=== PATIENT | male | born 2000 | race Caucasian/White ===

== ENCOUNTER 2020-04-17 10:38 | Emergency (ER) | payer BC, OTHER ==
[~2020-04-17] VITALS: Ht 177.8 cm; Wt 68.1 kg
[2020-04-17 10:55] VITALS: BP 128/57
[2020-04-17] MEDS ORDERED: LIDOCAINE 1% Multi-Dose 20 ML VIAL. INJ ONE (11:15)
[2020-04-17] MEDS ORDERED: AMOX1TAB10 PO (11:44)
--- NOTE | 2020-04-17 11:44 | PHYS DOC ---
Past Medical History Past Medical History: Other Additional Past Medical Histor: SLEEP Past Surgical History: Tonsillectomy, Other Additional Past Surgical Histo: ADENOIDS,ORIF FEMUR/REMOVAL HARDWARE Smoking Status: Never Smoker Alcohol Use: None General Adult EDM: Chief Complaint: ANIMAL BITE HPI: HPI: Patient is a 19 year old male who presents with was roughhousing with his mother's Jus Canela when it bit him in the upper corner of his lip causing a 0.5 cm laceration that is not through and through. His tetanus is up-to-date. Patient denies any pain at this time. Scant bleeding. Patient has a history of tonsillectomy and adenoids, femur removal and hardware. Denies any pain. The family dog vaccinations is up-to-date and rabies is up-to-date. Review of Systems: Review of Systems: Constitutional: Denies fever or chills. [] Eyes: Denies change in visual acuity. [] HENT: Denies nasal congestion or sore throat. [] Respiratory: Denies cough or shortness of breath. [] Cardiovascular: Denies chest pain or edema. [] GI: Denies abdominal pain, nausea, vomiting, bloody stools or diarrhea. [] : Denies dysuria. [] Musculoskeletal: Denies back pain or joint pain. [] Integument: Denies rash. +Lip laceration [] Neurologic: Denies headache, focal weakness or sensory changes. [] Endocrine: Denies polyuria or polydipsia. [] Lymphatic: Denies swollen glands. [] Psychiatric: Denies depression or anxiety. [] Heart Score: Risk Factors: Risk Factors: DM, Current or recent (<one month) smoker, HTN, HLP, family history of CAD, obesity. Risk Scores: Score 0 - 3: 2.5% MACE over next 6 weeks - Discharge Home Score 4 - 6: 20.3% MACE over next 6 weeks - Admit for Clinical Observation Score 7 - 10: 72.7% MACE over next 6 weeks - Early Invasive Strategies Current Medications: Current Medications Medications (Trade) Dose Ordered Sig/Karla Start Time Stop Time Status Last Admin Dose Admin Lidocaine HCl (Lidocaine 1% 20ml Vial) 20 ml 1X ONCE 04/17/20 11:15 04/17/20 11:16 DC 04/17/20 11:26 20 ML Allergies: Allergies: Allergies Coded Allergies Type Severity Reaction Last Updated Verified diazepam Allergy Intermediate RASH 04/17/20 Yes Physical Exam: PE: Constitutional: Well developed, well nourished, no acute distress, non-toxic appearance. [] HENT: Normocephalic, atraumatic, bilateral external ears normal, oropharynx moist, no oral exudates, nose normal. [] Eyes: PERRLA, EOMI, conjunctiva normal, no discharge. [] Neck: Normal range of motion, no tenderness, supple, no stridor. [] Cardiovascular:Heart rate regular rhythm, no murmur [] Lungs & Thorax: Bilateral breath sounds clear to auscultation [] Abdomen: Bowel sounds normal, soft, no tenderness, no masses, no pulsatile masses. [] Skin: Warm, dry, no erythema, no rash. Upper corner lip laceration [] Back: No tenderness, no CVA tenderness. [] Extremities: No tenderness, no cyanosis, no clubbing, ROM intact, no edema. [] Neurologic: Alert and oriented X 3, normal motor function, normal sensory function, no focal deficits noted. [] Psychologic: Affect normal, judgement normal, mood normal. [] Current Patient Data: Vital Signs: Vital Signs Date Time Temp Pulse Resp B/P (MAP) Pulse Ox O2 Delivery O2 Flow Rate FiO2 04/17/20 10:55 98.1 63 15 128/57 (80) 96 Room Air 98.1 EKG: EKG: [] Radiology/Procedures: Radiology/Procedures: [] Course & Med Decision Making: Course & Med Decision Making Pertinent Labs and Imaging studies reviewed. (See chart for details) See HPI. Patient is placed on Augmentin antibiotic. Laceration repair Location: 0.5 cm upper corner of lip Local anesthesia: 1% lidocaine Interrupted sutures/Internal sutures: 2 sutures using 6-0 starting at vermilion border Nerve/ligament/muscle damage: None Cleaning and irrigation: Chlorhexidine and saline The appropriate timeout was taken. The area was prepped and draped in the usual sterile fashion. The wound was copiously irrigated with normal saline and chlorhexidine. Patient tolerated well without complication. Dressing was applied to the area follow-up education is given to observe for signs and symptoms of infection, bleeding and to follow-up promptly if these occur. Patient can return in 48 hours for a wound recheck. Sutures to be removed in 7 to 10 days. [] Anamaria Disclaimer: Dragon Disclaimer: This electronic medical record was generated, in whole or in part, using a voice recognition dictation system. Departure Departure Impression: Primary Impression: Animal bite Additional Impression: Laceration Disposition: 01 DC HOME SELF CARE/HOMELESS Condition: STABLE Referrals: JERMAIN SALINAS MD (PCP) Patient Instructions: Animal Bite, Facial Laceration, Gkoi-oz-Zowd Additional Instructions: Keep the area clean. Sutures need to be removed in 10 days. Take antibiotic as prescribed and with food. Watch for signs of infection. Take ibuprofen for any pain. Scripts Amoxicillin/Potassium Clav (AMOX TR-K CLV 500-125 MG TAB) 1 Each Tablet 1 TAB PO BID for 10 Days, #20 TAB Prov: JOSELITO OLSEN APRN 04/17/20 JOSELITO OLSEN APRN Apr 17, 2020 11:44
== END 2020-04-17 11:55 | disposition home or self-care (01) ==
LOC: ER 10:38
DX: S01.511A Laceration without foreign body of lip, initial encounter (principal); Z88.8 Allergy status to other drugs, medicaments and biological substances; W54.0XXA Bitten by dog, initial encounter; Y93.89 Activity, other specified; Y92.89 Other specified places as the place of occurrence of the external cause; Y99.8 Other external cause status
CPT/HCPCS: 12011; 99283; J3490

== ENCOUNTER 2020-08-07 06:29 | Emergency (ER) | payer OTHER ==
[~2020-08-07] VITALS: Ht 177.8 cm; Wt 70.5 kg
[~2020-08-07 06:29] MED LIST: AMOX1TAB10 PO
[2020-08-07] MEDS ORDERED: MECLIZINE HCL 12.5 MG TABLET. PO ONE (07:00)
[2020-08-07] MEDS ORDERED: IV NORMAL SALINE 1000ML BAG 1,000 ML IV ONE (07:00)
--- NOTE | 2020-08-07 07:01 | EKG ---
[facility] [address] [place] [address] Test Date: 2020-08-07 Test Time: 06:45:41 Pat Name: YE SEPULVEDA Department: Room: Gender: M Rn Care Transition: : 2000 Requested By: MADALYN DELGADO Order Number: [id number] Reading MD: Measurements Intervals [place] Rate: 63 P: 56 MO: 196 QRS: 38 QRSD: 84 T: 52 QT: 360 QTc: 371 Interpretive Statements SINUS RHYTHM OTHERWISE NORMAL ECG RI6.02 No previous ECG available for comparison
--- NOTE | 2020-08-07 07:07 | PHYS DOC ---
Past Medical History Past Medical History: Other Additional Past Medical Histor: SLEEP Past Surgical History: Tonsillectomy, Other Additional Past Surgical Histo: ADENOIDS,ORIF FEMUR/REMOVAL HARDWARE Smoking Status: Never Smoker Alcohol Use: None General Adult EDM: Chief Complaint: DIZZY/LIGHT HEADED HPI: HPI: This is a pleasant 20-year-old male presenting to the emergency department today with dizziness. He describes his dizziness as the room is spinning. It is worse when he lays on his side and improved when he sits still. Its worse with change in orientation. He denies any pain associated with it. He denies a headache vomiting. He does have nausea associated with his symptoms. He denies any fevers or chills. Review of systems negative for chest pain abdominal pain rash fever chill nuchal rigidity. He denies any focal neurologic deficit. All other review of systems negative. ED course: 20-year-old male presenting the emergency department today with dizziness. EKG blood work and head CT ordered. Patient was given IV fluids with meclizine and Zofran and feels better after these medications. EKG unremarkable. EKG shows sinus rhythm with a regular rate. ST segments congruent. Not suggestive of acute ischemia. Head CT unremarkable. Chemistry panel unremarkable. CBC shows mild leukopenia. We will have the patient follow-up with his doctor over the next 2 to 4 days for repeat CBC. Otherwise we will refer the patient for outpatient peripheral vertigo evaluation and treatment. If the patient's vertigo persists over the next 2 to 3 weeks he will need an MRI of the brain. The patient has been examined and was not found to have an emergency medical condition. The patient was then discharged home in stable condition to follow up with their primary care physician over the next 2- 3 days. They were to return if their symptoms worsened or if they were concerned for any reason. They were also instructed to return to the emergency department if they were unable to get the recommended and appropriate follow-up. Kyli-[id number]-[id number] discharge instructions and return precautions were given. Patient's questions were answered to their satisfaction. Patient is comfortable with plan. Heart Score: C/O Chest Pain: No Risk Factors: Risk Factors: DM, Current or recent (<one month) smoker, HTN, HLP, family history of CAD, obesity. Risk Scores: Score 0 - 3: 2.5% MACE over next 6 weeks - Discharge Home Score 4 - 6: 20.3% MACE over next 6 weeks - Admit for Clinical Observation Score 7 - 10: 72.7% MACE over next 6 weeks - Early Invasive Strategies Current Medications: Current Medications Medications (Trade) Dose Ordered Sig/Karla Start Time Stop Time Status Last Admin Dose Admin Meclizine HCl (Antivert) 25 mg 1X ONCE 08/07/20 07:00 08/07/20 07:01 UNV Sodium Chloride 1,000 ml @ 1,000 mls/hr 1X ONCE 08/07/20 07:00 08/07/20 07:59 UNV Allergies: Allergies: Allergies Coded Allergies Type Severity Reaction Last Updated Verified diazepam Allergy Intermediate RASH 04/17/20 Yes Physical Exam: PE: Constitutional: Well developed, well nourished, no acute distress, non-toxic appearance. [] HENT: Normocephalic, atraumatic, bilateral external ears normal, oropharynx moist, no oral exudates, nose normal. [] Eyes: PERRLA, EOMI, conjunctiva normal, no discharge. [] Neck: Normal range of motion, no tenderness, supple, no stridor. [] Cardiovascular:Heart rate regular rhythm, no murmur [] Lungs & Thorax: Bilateral breath sounds clear to auscultation [] Abdomen: Bowel sounds normal, soft, no tenderness, no masses, no pulsatile masses. [] Skin: Warm, dry, no erythema, no rash. [] Back: No tenderness, no CVA tenderness. [] Extremities: No tenderness, no cyanosis, no clubbing, ROM intact, no edema. [] Neurologic: Mental status: Awake oriented and alert x3 Cranial nerves: Extraocular movements intact, eyebrows chema bilaterally, smile symmetric, uvula elevation nl, shoulder shrug intact bilaterally, tongue protrusion normal Clear speech. Normal [id number]. nl heal to santana. Sensation: equal and normal in all extremities Strength: 5/5 in upper and lower extremities bilaterally Psychologic: Affect normal, judgement normal, mood normal. [] EKG: EKG: [] Radiology/Procedures: Radiology/Procedures: [] Course & Med Decision Making: Course & Med Decision Making Pertinent Labs and Imaging studies reviewed. (See chart for details) [] Dragon Disclaimer: Dragon Disclaimer: This electronic medical record was generated, in whole or in part, using a voice recognition dictation system. Departure Departure Impression: Primary Impression: Vertigo Disposition: 01 DC HOME SELF CARE/HOMELESS Condition: STABLE Referrals: HOUSTON HAMMER MD (PCP) Patient Instructions: Vertigo Additional Instructions: EMERGENCY DEPARTMENT GENERAL DISCHARGE INSTRUCTIONS Follow-up with your primary physician in 2-3 days. You will likely benefit from outpatient peripheral vertigo physical therapy. If your symptoms persist over the next 2 to 3 weeks you may need an MRI of the brain. Return to the emergency department if you have any new or concerning findings. Thank you for coming to [facility] Emergency Department (ED) today and trusting us with you care. We trust that you had a positive experience in our Emergency Department. If you wish to speak to the department management, you may call the Director at [phone]. YOUR FOLLOW UP INSTRUCTIONS ARE FOLLOWS: 1. Do you have a private Doctor? If you do not have a private doctor, please ask for a resource list of physicians or clinics that may be able to assist you with follow up care. 2. If a lab test or culture has been done and does not come back immediately, your results will be reviewed and you will be notified if you need a change in treatment. ADDITIONAL INSTRUCTIONS AND INFORMATION: 1. Your care today has been supervised by a physician who is specially trained in emergency care. Many problems require more than one evaluation for a complete diagnosis and treatment. We recommend that you schedule your follow up appointment as recommended to ensure complete treatment of you illness or injury. If you are unable to obtain follow up care and continue to have a problem, or if your condition worsens, we recommend that you return to the ED. 2. We are not able to safely determine your condition over the phone nor are we able to give sound medical advice over the phone. For these safety reasons, if you call for medical advice we will ask you to come to the ED for further evaluation. 3. If you have any questions regarding these discharge instructions please call the ED at [phone]. SAFETY INFORMATION: In the interest of safety, wellness, and injury prevention; we encourage you to wear your sealbelt, if you smoke; quite smoking, and we encourage family to use a protective helmet for bicycling and other sporting events that present an increased risk for head injury. IF YOUR SYMPTOMS WORSEN OR NEW SYMPTOMS DEVELOP, OR YOU HAVE CONCERNS ABOUT YOUR CONDITION; OR IF YOUR CONDITION WORSENS WHILE YOU ARE WAITING FOR YOUR FOLLOW UP APPOINTMENT; EITHER CONTACT YOUR PRIMARY CARE DOCTOR, THE PHYSICIAN WHOSE NAME AND NUMBER YOU WERE GIVEN, OR RETURN TO THE ED IMMEDIATELY. This condition should be evaluated by your primary care physician and any necessary consulting services for continued management within a few days (1-2) after discharge. Return to the emergency department if you have any new or concerning symptoms including but not limited to fever, chills, nausea, vomiting, intractable pain, any new rashes, chest pain, shortness of breath, uncontrolled bleeding, difficulty breathing, and/or vision loss. Scripts Meclizine Hcl (MECLIZINE HCL) 25 Mg Tablet 1 TAB PO PRN TID PRN for SEE COMMENTS, #20 TAB Prov: MADALYN DELGADO MD 08/07/20 MADALYN DELGADO MD Aug 07, 2020 07:07
[2020-08-07] MEDS ORDERED: ONDANSETRON PF 4 MG/2 ML VIAL. IVP ONE (07:30)
[2020-08-07 07:35] LABS: BASO % 1 % (0-3); EOS # 0.1 x10^3/uL (0.0-0.7); EOS % 3 % (0-3); HEMATOCRIT 44.5 % (39.0-53.0); HEMOGLOBIN 15.5 g/dL (13.0-17.5); LYMPH # 1.8 x10^3/uL (1.0-4.8); LYMPH % 46 % (24-48); MEAN CORPUSCULAR HEMOGLOBIN 32 pg (25-35); MEAN CORPUSCULAR HGB CONC 35 g/dL (31-37); MEAN CORPUSCULAR VOLUME 92 fL (79-100); MONO # 0.3 x10^3/uL (0.0-1.1); MONO % 8 % (0-9); NEUT # 1.6 x10^3/uL (1.8-7.7); NEUT % 42 % (31-73); PLATELET COUNT 191 x10^3/uL (140-400); RED BLOOD COUNT 4.86 x10^6/uL (4.30-5.70); RED CELL DISTRIBUTION WIDTH 12.6 % (11.5-14.5); WHITE BLOOD COUNT 3.8 x10^3/uL (4.0-11.0)
[2020-08-07 07:55] LABS: CALCIUM 8.9 mg/dL (8.5-10.1); CREATININE 1.2 mg/dL (0.7-1.3); GFR 75.7; POTASSIUM 4.3 mmol/L (3.5-5.1)
[2020-08-07 08:01] LABS: ALBUMIN 3.7 g/dL (3.4-5.0); ALBUMIN/GLOBULIN RATIO 1.4 (1.0-1.7); C-REACTIVE PROTEIN 0.7 mg/L (0-3.3); TOTAL BILIRUBIN 0.3 mg/dL (0.2-1.0); TOTAL PROTEIN 6.4 g/dL (6.4-8.2)
[2020-08-07 08:30] VITALS: BP 116/67
--- NOTE | 2020-08-07 08:30 | RAD ---
RS Compliance Statement: One or more of the following individualized dose reduction techniques were utilized for this examinat ion: 1. Automated exposure control 2. Adjustment of the mA and/or kV according to patient size 3. Use of iterative reconstruction technique CT HEAD WITHOUT CONTRAST History: Reason: dizziness / Spl. Instructions: / History: Comparison: None. Procedure: Axial images are obtained of the head from the skull base through the vertex without IV co ntrast. Findings: The ventricles and sulci are normal for the patient's age. No mass-effect, midline shift, hemorrhage, extra-axial fluid collection, or obvious acute infarction is identified. Basilar cisterns are patent. Bone windows demonstrate no acute calvarial abnormality. The visualized paranasal sinuses are clear. Mastoid air cells are well aerated. IMPRESSION: No acute intracranial abnormality. Electronically signed by: Pankaj Garrison MD (08/07/2020 8:28 AM) [id number]
[2020-08-07] MEDS ORDERED: MECL-75 PO (08:41)
== END 2020-08-07 09:00 | disposition home or self-care (01) ==
LOC: ER 06:29
DX: R42 Dizziness and giddiness (principal); Z90.89 Acquired absence of other organs; Z98.890 Other specified postprocedural states; Z88.8 Allergy status to other drugs, medicaments and biological substances
CPT/HCPCS: 36415; 70450; 80053; 83690; 83735; 84484; 85025; 86140; 93005; 96361; 96374; 99285; J2405; J7030; J8597

== ENCOUNTER 2020-11-10 14:20 | Emergency (ER) | payer OTHER ==
[~2020-11-10] VITALS: Ht 177.8 cm; Wt 70.5 kg
[~2020-11-10 14:20] MED LIST changes: +MECL-75 PO
[2020-11-10 14:38] VITALS: BP 113/56
[2020-11-10] MEDS ORDERED: LIDOCAINE 2%/EPI 1:100,000 20 ML VIAL. INJ ONE (14:45)
--- NOTE | 2020-11-10 15:19 | RAD ---
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 Instructions: / Va story: Technique: 2 views left tibia and fibula Comparison: None. Findings: Normal alignment. No fracture. Anterior lower extremity soft tissue wound. No radiopaque foreign body . Impression: 1. No acute osseous abnormality. 2. Anterior lower extremity soft tissue injury. No radiopaque foreign body. Electronically signed by: Rudy Price DO (11/10/2020 3:16 PM) [facility]
[2020-11-10] MEDS ORDERED: CEPH500C PO (15:42)
--- NOTE | 2020-11-10 15:43 | ED.ADGEN ---
Past Medical History Past Medical History: Other Additional Past Medical Histor: SLEEP Past Surgical History: Tonsillectomy, Other Additional Past Surgical Histo: ADENOIDS,ORIF FEMUR/REMOVAL HARDWARE Smoking Status: Never Smoker Alcohol Use: None General Adult EDM: Chief Complaint: LOWEREXTREMITY INJURY HPI: HPI: Patient is a 20 year old male, accompanied by his father, who presents to the emergency room with complaints of lower left extremity pain and laceration after falling down the steps of a skid steer at work today. Patient denies any head injury, neck pain, or back pain. He denies any numbness, tingling, or weakness of the affected extremity. Patient reports that he has been able to bear weight but reports tenderness to the leg with palpation. Patient states his last tetanus was less than 5 years ago. He currently rates his pain a 4 out of 10 on pain scale, he denies any alleviating factors, pain is worse palpation. Patient also reports of an itchy rash to his right upper extremity and right side of his neck after coming into contact with what he believes was poison abby last week at work. Review of Systems: Review of Systems: Complete ROS is negative unless otherwise noted in HPI. Current Medications: Current Medications Medications (Trade) Dose Ordered Sig/Karla Start Time Stop Time Status Last Admin Dose Admin Lidocaine/ Epinephrine (LIDOCAINE 2%-EPI 1:100,000 multi-dose) 20 ml 1X ONCE 11/10/20 14:45 11/10/20 14:46 DC 11/10/20 14:50 20 ML Allergies: Allergies: Allergies Coded Allergies Type Severity Reaction Last Updated Verified diazepam Allergy Intermediate RASH 04/17/20 Yes Physical Exam: PE: See Above Constitutional: Well developed, well nourished, no acute distress, non-toxic appearance. [] HENT: Normocephalic, atraumatic, bilateral external ears normal, nose normal. [] Eyes: PERRLA, EOMI, conjunctiva normal, no discharge. [] Neck: Normal range of motion, no stridor. [] Cardiovascular:Heart rate regular rhythm Lungs & Thorax: Respirations even and unlabored, no retractions, no respiratory distress Skin: Warm, dry; erythemic scattered, raised rash to right upper extremity and right shoulder Concerning for contact dermatitis; abrasions to the anterior lower left leg, no active bleeding; there is also a 3 cm deep laceration to the anterior lower left leg just below the knee with bleeding controlled by dressing in place, no visible foreign body Extremities: LLE: Anterior tenderness to palpation without obvious deformity or crepitus, sensation intact, cap refill less than 2 seconds, 2+ posterior tibial and pedal pulses, no cyanosis, ROM intact, no edema. [] Neurologic: Alert and oriented X 3, normal motor, normal sensory, no focal deficits noted. [] Psychologic: Affect normal, judgement normal, mood normal. [] Current Patient Data: Vital Signs: Vital Signs Date Time Temp Pulse Resp B/P (MAP) Pulse Ox O2 Delivery O2 Flow Rate FiO2 11/10/20 14:38 98.2 69 14 113/56 (75) 99 Room Air 98.2 EKG: EKG: [] Heart Score: C/O Chest Pain: No Radiology/Procedures: Radiology/Procedures: Laceration Repair by me: Anesthesia: 2% lidocaine with epinephrine local Location: Lower left extremity Tendon/Joint/Nerves: No injury Foreign body: None detected after copious irrigation and exploration with NS and chlorhexidine Technique: 7 simple Interrupted Sutures with 4-0 Ethilon Complexity: No subcutaneous sutures/mucosal repair/edge excision Post Closure Length: 3.5 cm Patient's bleeding was easily controlled in the department and there is no indication of anemia. No evidence of compartment syndrome, neurologic injury, vascular injury, open joint, tendon laceration, or foreign body. Patient is appropriate for outpatient follow up. 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 Instructions: / History: Technique: 2 views left tibia and fibula Comparison: None. Findings: Normal alignment. No fracture. Anterior lower extremity soft tissue wound. No radiopaque foreign body. Impression: 1. No acute osseous abnormality. 2. Anterior lower extremity soft tissue injury. No radiopaque foreign body. [] [] Course & Med Decision Making: Course & Med Decision Making Pertinent Labs and Imaging studies reviewed. (See chart for details) [] Dragon Disclaimer: Dragon Disclaimer: This electronic medical record was generated, in whole or in part, using a voice recognition dictation system. Departure Departure Impression: Primary Impression: Laceration of skin of left lower leg without complication Additional Impressions: Abrasion, left lower leg, initial encounter Contact dermatitis Disposition: HOME / SELF CARE / HOMELESS Condition: STABLE Referrals: HOUSTON HAMMER MD (PCP) Patient Instructions: Abrasion, [id number], Laceration Care, Adult, Ewgt-[id number]-Afxm, Poison Abby, [id number] Additional Instructions: Fill the prescription and take it as directed. Keep the area clean and dry. You may take Tylenol or ibuprofen as needed for pain. Keep the dressing that was placed today on for 24 hours then change the dressing twice a day and wash with soap and water. Apply antibiotic ointment to the abraded area twice daily. Follow-up with your primary care doctor, or return to the emergency room in 10- 14 days to have the sutures removed, sooner if you develop signs of infection including: redness, warmth, drainage, or a fever. Scripts Prednisone (PREDNISONE) 20 Mg Tablet 1 TAB PO UD for 12 Days, #15 TAB 0 Refills 2 tabs by mouth days 1,2,3 then 1.5 tabs by mouth days 4,5,6 then 1 tab by mouth days 7,8,9 then 0.5 tab by mouth day 10,11,12 Prov: HEATHER ALVA APRN 11/10/20 Cephalexin (CEPHALEXIN) 500 Mg Capsule 1 CAP PO BID for 7 Days, #14 CAP 0 Refills Prov: HEATHER ALVA JAVA PROGRAMMER ANALYST 11/10/20 Problem Qualifiers Primary Impression: Laceration of skin of left lower leg without complication Encounter type: initial encounter Qualified Codes: S81.812A - Laceration without foreign body, left lower leg, initial encounter Additional Impressions: Contact dermatitis Contact dermatitis type: allergic Contact dermatitis trigger: unspecified trigger Qualified Codes: L23.9 - Allergic contact dermatitis, unspecified cause HEATHER ALVA APRN Nov 10, 2020 15:43
[2020-11-10] MEDS ORDERED: PRED20TA PO (15:54)
== END 2020-11-10 16:11 | disposition home or self-care (01) ==
LOC: ER 14:20
DX: S81.812A Laceration without foreign body, left lower leg, initial encounter (principal); Z88.8 Allergy status to other drugs, medicaments and biological substances; W10.8XXA Fall (on) (from) other stairs and steps, initial encounter; Y93.89 Activity, other specified; Y92.89 Other specified places as the place of occurrence of the external cause; Y99.8 Other external cause status
CPT/HCPCS: 12002; 73590; 99285; J3490

== ENCOUNTER → 2021-04-29 | Outpatient (CLI) | payer OTHER ==
[~2021-04-29] MED LIST changes: +CEPH500C PO; +PRED20TA PO
[2021-04-29 16:28] LABS: FREE T4 0.87 ng/dL (0.76-1.46); THYROID STIM HORMONE (TSH) 0.989 uIU/mL (0.358-3.74)
[2021-04-30 16:12] LABS: TESTOSTERONE TOTAL 341 ng/dL (264-916)
== END ==
LOC: LAB 14:51
PROVIDERS: ATTEND Nurse Practitioner
DX: R53.83 Other fatigue (principal)
CPT/HCPCS: 36415; 84403; 84439; 84443